=== PATIENT | male | born 1965 | race Two or more races ===

== ENCOUNTER 2023-09-19 05:16 | Inpatient (IN) | payer MEDICAID ==
[~2023-09-19] VITALS: Ht 170.2 cm; Wt 91.1 kg
[2023-09-19] MEDS ORDERED: pantoprazole 40mg IV 80 MG in normal saline 100ml IV soln 100 ML IV ONE (05:30)
[2023-09-19] MEDS ORDERED: normal saline 1000ML IV soln IVB ONE (05:30)
[2023-09-19] MEDS ORDERED: pantoprazole 40 MG vial IV ONE (05:35)
[2023-09-19] MEDS ORDERED: normal saline 1000ML IV soln IV ONE (06:00)
[2023-09-19] MEDS ORDERED: ondansetron/PF 4mg/2ml inj IV ONE ×2 (06:15→21:10)
[2023-09-19 06:24] LABS: BASOPHILS % (AUTO) 0.4 % (0-1); EOSINOPHILS # (AUTO) 0.3 X10'3 (0-0.9); EOSINOPHILS % (AUTO) 3.5 % (0-6); HEMATOCRIT 37.5 % (42.0-52.0); HEMOGLOBIN 13.2 g/dl (14.0-17.9); LYMPHOCYTES # (AUTO) 1.2 X10'3 (1.1-4.8); LYMPHOCYTES % (AUTO) 13.6 % (21-51); MEAN CORPUSCULAR HEMOGLOBIN 34.2 PG (27.0-31.0); MEAN CORPUSCULAR HGB CONC 35.1 g/dL (33.0-36.5); MEAN CORPUSCULAR VOLUME 97.3 FL (78-98); MEAN PLATELET VOLUME 9.8 FL (7.4-10.4); MONOCYTES % (AUTO) 11.3 % (2-12); NEUTROPHILS # (AUTO) 6.2 X10'3 (1.8-7.7); NEUTROPHILS % (AUTO) 71.2 % (42-75); PLATELET COUNT 73 X10'3 (140-440); RED BLOOD COUNT 3.85 X10'6 (4.70-6.10); RED CELL DISTRIBUTION WIDTH 14.5 % (11.5-14.5); WHITE BLOOD COUNT 8.7 X10'3 (4.5-11.0)
[2023-09-19 06:33] LABS: APTT 33 SECONDS (22-32); INR 1.3 INR; PROTHROMBIN TIME 13.7 SECONDS (9.0-12.0)
[2023-09-19 06:35] LABS: ALANINE AMINOTRANSFERASE 31 U/L (12-78); ALBUMIN/GLOBULIN RATIO 0.8 (1.1-1.5); ALKALINE PHOSPHATASE 90 IU/L (46-116); ANION GAP 14 (8-16); ASPARTATE AMINO TRANSFERASE 45 U/L (10-37); BILIRUBIN,TOTAL 1.9 MG/DL (0.1-1.0); BLOOD UREA NITROGEN 35 MG/DL (7-18); BUN/CREATININE RATIO 15.6 (10.0-20.0); CALCIUM 9.2 MG/DL (8.5-10.1); CHLORIDE 104 MMOL/L (99-107); CREATININE 2.25 MG/DL (0.60-1.10); GLUCOSE 136 MG/DL (70-104); POTASSIUM 3.7 MMOL/L (3.5-5.1); SODIUM 141 MMOL/L (135-145); TOTAL CARBON DIOXIDE 23.5 MMOL/L (24-32); TOTAL PROTEIN 6.9 G/DL (6.4-8.2); eCRCL 33 ML/MIN; eGFR 30 ML/MIN
[2023-09-19] MEDS ORDERED: METF-436 PO (07:55)
[2023-09-19] MEDS ORDERED: HYDR-3965 PO (08:21)
[2023-09-19] MEDS ORDERED: POTASSIUM (08:21)
[2023-09-19] MEDS ORDERED: CYCL1DRO (08:21)
[2023-09-19] MEDS ORDERED: FURO20TA4 PO (08:21)
[2023-09-19] MEDS ORDERED: ERGO500093 PO (08:21)
[2023-09-19] MEDS ORDERED: EPLE50TA3 PO (08:21)
[2023-09-19] MEDS ORDERED: TIZA-205 PO (08:21)
[2023-09-19] MEDS ORDERED: LEVO40CA PO (08:21)
[2023-09-19] MEDS ORDERED: BICT1TAB PO (08:21)
[2023-09-19] MEDS ORDERED: PREG150C47 PO (08:21)
[2023-09-19] MEDS ORDERED: octreotide inj. 1,250 MCG in normal saline 250ml IV soln 243.75 ML IV SCH (08:55)
[2023-09-19] MEDS ORDERED: octreotide 100mcg/1 ml ampule IV ONE (09:00)
[2023-09-19 09:09] LABS: BILIRUBIN,URINE NEGATIVE (Neg); CLARITY,URINE CLEAR (Clear); COLOR,URINE YELLOW (Yellow); GLUCOSE, URINE NEGATIVE (Neg); KETONES,URINE NEGATIVE (Neg); LEUKOCYTE ESTERASE ,URINE NEGATIVE (Neg); NITRITES, URINE NEGATIVE (Neg); OCCULT BLOOD,URINE NEGATIVE (Neg); PROTEIN,URINE TRACE mg/dl (Neg); UROBILINOGEN,URINE 0.2 E.U/dL (0.2-1.0)
[2023-09-19 09:29] LABS: UA COLLECTION TYPE CLN CATCH MIDSTREAM
[2023-09-19 09:32] LABS: BACTERIA,URINE FEW /HPF (Neg); CAL OXALATE CRYSTALS 4+ /HPF (NEGATIVE); RBC,URINE 0-2 /HPF (0-2); SQUAMOUS EPITHELIAL CELL,UR FEW /LPF (FEW); WBC,URINE 0-4 /HPF (0-4)
[2023-09-19] MEDS: pantoprazole 40MG/NS 100ML BAG 100 ML IV SCH ×3 (09:39→21:01)
[2023-09-19] MEDS: octreotide inj. 500 MCG in normal saline 100ml IV soln 97.5 ML IV SCH (10:05)
[2023-09-19] MEDS ORDERED: acetaminophen 325mg tablet PO PRN (10:15)
[2023-09-19] MEDS ORDERED: magnesium 4gm in 100ml NS 100 ML IV PRN (10:15)
[2023-09-19] MEDS ORDERED: magnesium Cl slow-release 64mg tablet PO PRN (10:15)
[2023-09-19] MEDS ORDERED: magnesium 2GM in 50ml NS 50 ML IV PRN (10:15)
[2023-09-19] MEDS ORDERED: potassium Cl 20 mEq SR tablet PO PRN (10:15)
[2023-09-19] MEDS ORDERED: potassium Cl 40MEQ/1/2NS 520ml 520 ML IV PRN (10:15)
[2023-09-19 10:48] VITALS: BP 136/76; PULSE 91; RESP 18
[2023-09-19] MEDS ORDERED: ondansetron/PF 4mg/2ml inj ONE (10:51)
[2023-09-19] MEDS: ondansetron/PF 4mg/2ml inj IV PRN ×2 (10:55→18:13)
[2023-09-19] MEDS ORDERED: CefTRIAXone/D5W-Rocephin 1gm 50 ML IV ONE (11:10)
[2023-09-19] MEDS ORDERED: MIDAZolam 1 MG/ML 5ML VIAL ONE (11:23)
[2023-09-19] MEDS ORDERED: LIDOcaine Viscous 15ml cup ONE (11:23)
[2023-09-19] MEDS ORDERED: fentaNYL/PF 50MCG/1 ML 2ML syringe ONE (11:23)
[2023-09-19 11:48] VITALS: BP 96/52; PULSE 84; RESP 15; O2SAT 96
[2023-09-19 11:58] VITALS: BP 86/53; PULSE 78; RESP 16; O2SAT 97
[2023-09-19 12:08] VITALS: BP 86/50; PULSE 78; RESP 16; O2SAT 97
[2023-09-19 12:18] VITALS: BP 98/54; PULSE 77; RESP 16; O2SAT 97
[2023-09-19] MEDS: morphine 2 MG/ML inj. syringe IV PRN (19:27)
[2023-09-19] MEDS ORDERED: ondansetron/PF 4mg/2ml inj IM ONE (20:35)
[2023-09-19] MEDS: K and/or MAG REPLACEMENT MC SCH (20:57)
[2023-09-20] MEDS: octreotide inj. 500 MCG in normal saline 100ml IV soln 97.5 ML IV SCH ×4 (01:10→23:18)
[2023-09-20] MEDS: pantoprazole 40MG/NS 100ML BAG 100 ML IV SCH ×6 (02:38→23:17)
[2023-09-20] MEDS: K and/or MAG REPLACEMENT MC SCH ×2 (08:00→20:00)
[2023-09-20 10:18] LABS: BASOPHILS # (AUTO) 0.1 X10'3 (0-0.2); EOSINOPHILS # (AUTO) 0.3 X10'3 (0-0.9); EOSINOPHILS % (AUTO) 5.3 % (0-6); HEMATOCRIT 30.8 % (42.0-52.0); HEMOGLOBIN 10.6 g/dl (14.0-17.9); LYMPHOCYTES # (AUTO) 1.2 X10'3 (1.1-4.8); MEAN CORPUSCULAR HEMOGLOBIN 34.2 PG (27.0-31.0); MEAN CORPUSCULAR HGB CONC 34.6 g/dL (33.0-36.5); MEAN PLATELET VOLUME 9.8 FL (7.4-10.4); MONOCYTES # (AUTO) 0.6 X10'3 (0-0.9); MONOCYTES % (AUTO) 11.3 % (2-12); NEUTROPHILS # (AUTO) 3.4 X10'3 (1.8-7.7); NEUTROPHILS % (AUTO) 61.4 % (42-75); PLATELET COUNT 57 X10'3 (140-440); RED BLOOD COUNT 3.11 X10'6 (4.70-6.10); RED CELL DISTRIBUTION WIDTH 14.5 % (11.5-14.5); WHITE BLOOD COUNT 5.6 X10'3 (4.5-11.0)
[2023-09-20 10:29] LABS: ALBUMIN 2.8 G/DL (3.4-5.0); ANION GAP 9 (8-16); BLOOD UREA NITROGEN 49 MG/DL (7-18); BUN/CREATININE RATIO 26.9 (10.0-20.0); CALCIUM 7.7 MG/DL (8.5-10.1); CHLORIDE 113 MMOL/L (99-107); CREATININE 1.82 MG/DL (0.60-1.10); GLUCOSE 122 MG/DL (70-104); POTASSIUM 3.6 MMOL/L (3.5-5.1); SODIUM 146 MMOL/L (135-145); TOTAL CARBON DIOXIDE 24.1 MMOL/L (24-32); eCRCL 41 ML/MIN; eGFR 38 ML/MIN
[2023-09-20] MEDS: ondansetron/PF 4mg/2ml inj IV PRN ×2 (10:42→19:03)
[2023-09-20] MEDS: morphine 2 MG/ML inj. syringe IV PRN ×4 (10:43→23:18)
[2023-09-20 11:12] LABS: PLATELET ESTIMATE DECREASED
[2023-09-20 11:13] LABS: ELLIPTOCYTES FEW; POLYCHROMASIA FEW
[2023-09-20] MEDS ORDERED: tizanidine 4mg tablet PO PRN (13:55)
[2023-09-20] MEDS: pregabalin 75mg capsule PO SCH ×2 (17:32→21:10)
[2023-09-20] MEDS: CefTRIAXone/D5W-Rocephin 1gm 50 ML IV SCH (19:16)
[2023-09-20] MEDS ORDERED: DEXTROSE 15 GM of carb/4 tabs (each vial/BOTTLE has 4 tablets) PO PRN ×2 (21:10)
[2023-09-20] MEDS ORDERED: dextrose 50%-water 50ml dispensing syringe IV PRN ×2 (21:10)
[2023-09-20] MEDS ORDERED: insulin Lispro (HumaLOG) vial - multi-dose SQ SCH (21:10)
[2023-09-20] MEDS ORDERED: MESSAGE TO PHARMACY PO ONE (21:10)
[2023-09-20] MEDS: furosemide 40mg tablet PO SCH (21:10)
[2023-09-20] MEDS ORDERED: glucagon, human recombinant 1mg kit SUBCUT PRN (21:10)
[2023-09-20 21:39] LABS: HEMOGLOBIN A1C 5.4 % (4.5-6.2)
[2023-09-20 22:13] VITALS: BP 135/72; PULSE 75; RESP 20; TEMP 98.3; O2SAT 99
[2023-09-21] MEDS: pantoprazole 40MG/NS 100ML BAG 100 ML IV SCH ×5 (03:38→21:59)
[2023-09-21 06:00] VITALS: BP 112/60; PULSE 83; RESP 20; TEMP 98; O2SAT 97
[2023-09-21 06:43] LABS: BASOPHILS % (AUTO) 0.5 % (0-1); EOSINOPHILS # (AUTO) 0.3 X10'3 (0-0.9); EOSINOPHILS % (AUTO) 5.4 % (0-6); HEMATOCRIT 31.1 % (42.0-52.0); HEMOGLOBIN 10.8 g/dl (14.0-17.9); LYMPHOCYTES # (AUTO) 1.3 X10'3 (1.1-4.8); LYMPHOCYTES % (AUTO) 23.1 % (21-51); MEAN CORPUSCULAR HEMOGLOBIN 34.9 PG (27.0-31.0); MEAN CORPUSCULAR HGB CONC 34.8 g/dL (33.0-36.5); MEAN CORPUSCULAR VOLUME 100.3 FL (78-98); MEAN PLATELET VOLUME 9.6 FL (7.4-10.4); MONOCYTES # (AUTO) 0.7 X10'3 (0-0.9); MONOCYTES % (AUTO) 12.1 % (2-12); NEUTROPHILS # (AUTO) 3.4 X10'3 (1.8-7.7); NEUTROPHILS % (AUTO) 58.9 % (42-75); PLATELET COUNT 62 X10'3 (140-440); WHITE BLOOD COUNT 5.7 X10'3 (4.5-11.0)
[2023-09-21 06:52] LABS: ANION GAP 9 (8-16); BLOOD UREA NITROGEN 44 MG/DL (7-18); BUN/CREATININE RATIO 22.8 (10.0-20.0); CALCIUM 8.8 MG/DL (8.5-10.1); CHLORIDE 115 MMOL/L (99-107); CREATININE 1.93 MG/DL (0.60-1.10); GLUCOSE 122 MG/DL (70-104); MAGNESIUM 2.1 MG/DL (1.5-2.4); SODIUM 147 MMOL/L (135-145); TOTAL CARBON DIOXIDE 23.1 MMOL/L (24-32); eCRCL 39 ML/MIN; eGFR 36 ML/MIN
[2023-09-21 06:54] LABS: POTASSIUM 3.4 MMOL/L (3.5-5.1)
[2023-09-21] MEDS: K and/or MAG REPLACEMENT MC SCH ×2 (08:00→20:00)
[2023-09-21] MEDS: LEVOMILNACIPRAN HYDROCHLORIDE 40 MG PO SCH (08:00)
[2023-09-21] MEDS: pregabalin 75mg capsule PO SCH ×4 (08:27→20:34)
[2023-09-21] MEDS: CefTRIAXone/D5W-Rocephin 1gm 50 ML IV SCH (08:27)
[2023-09-21] MEDS: furosemide 40mg tablet PO SCH ×2 (08:28→20:35)
[2023-09-21] MEDS: HYDROcodone/acetaminophen 5mg/325mg tablet PO PRN ×3 (08:29→21:54)
[2023-09-21] MEDS: potassium Cl 20 mEq SR tablet PO PRN ×2 (08:33→21:54)
[2023-09-21] MEDS: morphine 2 MG/ML inj. syringe IV PRN (10:23)
[2023-09-21] MEDS: octreotide inj. 500 MCG in normal saline 100ml IV soln 97.5 ML IV SCH ×2 (12:08→22:45)
[2023-09-21 18:00] VITALS: BP 117/58; PULSE 85; RESP 16; TEMP 99.3; O2SAT 97
[2023-09-21 20:00] VITALS: RESP 18; O2SAT 96
[2023-09-21] MEDS: carVEDilol 3.125mg tablet PO SCH (20:35)
[2023-09-21] MEDS ORDERED: insulin glargine (Lantus) pen - multi-dose SQ SCH (21:00)
[2023-09-21 22:00] VITALS: PULSE 78; RESP 16; TEMP 98.1; O2SAT 97
[2023-09-22] MEDS: pantoprazole 40MG/NS 100ML BAG 100 ML IV SCH ×2 (04:32→10:04)
[2023-09-22 05:46] LABS: BASOPHILS % (AUTO) 0.8 % (0-1); EOSINOPHILS # (AUTO) 0.3 X10'3 (0-0.9); EOSINOPHILS % (AUTO) 9.2 % (0-6); HEMATOCRIT 26.7 % (42.0-52.0); HEMOGLOBIN 9.2 g/dl (14.0-17.9); LYMPHOCYTES # (AUTO) 1.1 X10'3 (1.1-4.8); LYMPHOCYTES % (AUTO) 30.3 % (21-51); MEAN CORPUSCULAR HEMOGLOBIN 34.9 PG (27.0-31.0); MEAN CORPUSCULAR HGB CONC 34.6 g/dL (33.0-36.5); MEAN CORPUSCULAR VOLUME 101.1 FL (78-98); MEAN PLATELET VOLUME 9.8 FL (7.4-10.4); MONOCYTES # (AUTO) 0.5 X10'3 (0-0.9); MONOCYTES % (AUTO) 13.7 % (2-12); NEUTROPHILS # (AUTO) 1.7 X10'3 (1.8-7.7); PLATELET COUNT 55 X10'3 (140-440); RED BLOOD COUNT 2.64 X10'6 (4.70-6.10); RED CELL DISTRIBUTION WIDTH 15.1 % (11.5-14.5); WHITE BLOOD COUNT 3.6 X10'3 (4.5-11.0)
[2023-09-22] MEDS: octreotide inj. 500 MCG in normal saline 100ml IV soln 97.5 ML IV SCH (05:50)
[2023-09-22 05:52] LABS: ALBUMIN 2.5 G/DL (3.4-5.0); ANION GAP 11 (8-16); BLOOD UREA NITROGEN 32 MG/DL (7-18); BUN/CREATININE RATIO 14.5 (10.0-20.0); CALCIUM 7.9 MG/DL (8.5-10.1); CHLORIDE 110 MMOL/L (99-107); GLUCOSE 191 MG/DL (70-104); MAGNESIUM 1.8 MG/DL (1.5-2.4); POTASSIUM 3.2 MMOL/L (3.5-5.1); SODIUM 142 MMOL/L (135-145); TOTAL CARBON DIOXIDE 21.1 MMOL/L (24-32); eCRCL 34 ML/MIN; eGFR 31 ML/MIN
[2023-09-22 06:00] VITALS: BP 100/55; PULSE 57; RESP 18; TEMP 97.7; O2SAT 95
[2023-09-22] MEDS: furosemide 40mg tablet PO SCH (07:18)
[2023-09-22] MEDS: carVEDilol 3.125mg tablet PO SCH (07:18)
[2023-09-22] MEDS: pregabalin 75mg capsule PO SCH ×3 (07:18→16:27)
[2023-09-22] MEDS ORDERED: magnesium 2GM in 50ml NS 50 ML IV PRN (07:40)
[2023-09-22] MEDS ORDERED: magnesium 4gm in 100ml NS 100 ML IV PRN (07:40)
[2023-09-22 08:00] VITALS: RESP 18; O2SAT 95
[2023-09-22] MEDS: K and/or MAG REPLACEMENT MC SCH (08:00)
[2023-09-22] MEDS: LEVOMILNACIPRAN HYDROCHLORIDE 40 MG PO SCH (08:00)
[2023-09-22] MEDS: CefTRIAXone/D5W-Rocephin 1gm 50 ML IV SCH (09:58)
[2023-09-22 10:00] VITALS: BP 104/65; PULSE 66; RESP 18; TEMP 98; O2SAT 95
[2023-09-22 14:28] LABS: HEMOGLOBIN 9.5 g/dl (14.0-17.9); MEAN CORPUSCULAR HEMOGLOBIN 34.5 PG (27.0-31.0); MEAN CORPUSCULAR HGB CONC 34.1 g/dL (33.0-36.5); MEAN CORPUSCULAR VOLUME 101.4 FL (78-98); MEAN PLATELET VOLUME 9.6 FL (7.4-10.4); PLATELET COUNT 58 X10'3 (140-440); RED BLOOD COUNT 2.76 X10'6 (4.70-6.10); RED CELL DISTRIBUTION WIDTH 15.1 % (11.5-14.5); WHITE BLOOD COUNT 3.9 X10'3 (4.5-11.0)
[2023-09-22] MEDS ORDERED: potassium Cl 20 mEq SR tablet PO STA (15:35)
[2023-09-22] MEDS ORDERED: PANT40TA54 PO (15:46)
[2023-09-22] MEDS ORDERED: CARV3.122 PO (15:46)
[2023-09-22] MEDS ORDERED: LACT10SO78 PO (15:46)
== END 2023-09-22 17:10 | disposition home or self-care (01) ==
LOC: ER 05:17 → ED HOLD 10:19 → ORTHO 4S 09-20 22:10
PROVIDERS: ADMIT Internal Medicine; ATTEND Internal Medicine
PROC: 0DJ08ZZ Inspection of Upper Intestinal Tract, Via Natural or Artificial Opening Endoscopic (ICD-10-PCS; 2023-09-19)
PROC: 0W9G3ZZ Drainage of Peritoneal Cavity, Percutaneous Approach (ICD-10-PCS; principal; 2023-09-21)
DX: K76.6 Portal hypertension (principal); I81 Portal vein thrombosis; G93.40 Encephalopathy, unspecified; I85.01 Esophageal varices with bleeding; K72.10 Chronic hepatic failure without coma; E87.0 Hyperosmolality and hypernatremia; D69.6 Thrombocytopenia, unspecified; R18.8 Other ascites; R71.0 Precipitous drop in hematocrit; K31.89 Other diseases of stomach and duodenum; D12.6 Benign neoplasm of colon, unspecified; K76.82 Hepatic encephalopathy; N17.9 Acute kidney failure, unspecified; K73.9 Chronic hepatitis, unspecified; K74.60 Unspecified cirrhosis of liver; N18.9 Chronic kidney disease, unspecified; E80.6 Other disorders of bilirubin metabolism; Z79.84 Long term (current) use of oral hypoglycemic drugs; Z79.899 Other long term (current) drug therapy; Z90.49 Acquired absence of other specified parts of digestive tract; Z87.891 Personal history of nicotine dependence
CPT/HCPCS: 36415; 43235; 71045; 76705; 80048; 80053; 81001; 82140; 82948; 83036; 83735; 84132; 85008; 85025; 85027; 85610; 85730; 86885; 86900; 86901; 87040; 87081; 93005; 96361; 96374; 96375; 97116; 97161; 97530; 99152; 99285; A4620; C9113; G0378; J0696; J1815; J2250; J2270; J2354; J2405; J3010; J3490; J7030

== ENCOUNTER 2023-09-28 17:53 | Inpatient (IN) | payer MEDICAID ==
[~2023-09-28] VITALS: Ht 170.2 cm; Wt 89.0 kg
[~2023-09-28 17:53] MED LIST: BICT1TAB PO; CARV3.122 PO; CYCL1DRO; EPLE50TA3 PO; ERGO500093 PO; FURO20TA4 PO; HYDR-3965 PO; LACT10SO78 PO; LEVO40CA PO; PANT40TA54 PO; POTASSIUM; PREG150C47 PO; TIZA-205 PO
[2023-09-28 18:28] LABS: BASOPHILS % (AUTO) 0.6 % (0-1); EOSINOPHILS # (AUTO) 0.2 X10'3 (0-0.9); EOSINOPHILS % (AUTO) 5.3 % (0-6); HEMATOCRIT 29.3 % (42.0-52.0); HEMOGLOBIN 10.6 g/dl (14.0-17.9); LYMPHOCYTES % (AUTO) 23.2 % (21-51); MEAN CORPUSCULAR HEMOGLOBIN 35.5 PG (27.0-31.0); MEAN CORPUSCULAR HGB CONC 36.3 g/dL (33.0-36.5); MEAN CORPUSCULAR VOLUME 97.8 FL (78-98); MEAN PLATELET VOLUME 9.1 FL (7.4-10.4); MONOCYTES # (AUTO) 0.6 X10'3 (0-0.9); MONOCYTES % (AUTO) 13.3 % (2-12); NEUTROPHILS # (AUTO) 2.5 X10'3 (1.8-7.7); NEUTROPHILS % (AUTO) 57.6 % (42-75); PLATELET COUNT 78 X10'3 (140-440); RED BLOOD COUNT 2.99 X10'6 (4.70-6.10); RED CELL DISTRIBUTION WIDTH 15.4 % (11.5-14.5); WHITE BLOOD COUNT 4.3 X10'3 (4.5-11.0)
[2023-09-28 18:56] LABS: ALBUMIN 2.9 G/DL (3.4-5.0); ALBUMIN/GLOBULIN RATIO 0.7 (1.1-1.5); ALKALINE PHOSPHATASE 126 IU/L (46-116); BILIRUBIN,TOTAL 0.9 MG/DL (0.1-1.0); BLOOD UREA NITROGEN 24 MG/DL (7-18); BUN/CREATININE RATIO 11.4 (10.0-20.0); CALCIUM 8.8 MG/DL (8.5-10.1); CHLORIDE 103 MMOL/L (99-107); PRO BRAIN NATRIURETIC PEPTIDE 49 PG/ML (0-125); TOTAL CARBON DIOXIDE 24.6 MMOL/L (24-32); TOTAL PROTEIN 7.3 G/DL (6.4-8.2); eGFR 32 ML/MIN
[2023-09-28 19:23] LABS: ALANINE AMINOTRANSFERASE 24 U/L (12-78); ANION GAP 11 (8-16); ASPARTATE AMINO TRANSFERASE 28 U/L (10-37); GLUCOSE 119 MG/DL (70-104); POTASSIUM 3.1 MMOL/L (3.5-5.1); SODIUM 139 MMOL/L (135-145)
[2023-09-28 20:22] LABS: PLATELET ESTIMATE DECREASED; POLYCHROMASIA FEW; SPHEROCYTES FEW
[2023-09-28 20:23] LABS: ELLIPTOCYTES FEW
[2023-09-28 20:27] LABS: APTT 30 SECONDS (22-32); INR 1.1 INR; PROTHROMBIN TIME 11.6 SECONDS (9.0-12.0)
[2023-09-28] MEDS ORDERED: lactulose 20gm/30ml cup PO ONE (21:55)
[2023-09-28 21:57] LABS: BILIRUBIN,URINE NEGATIVE (Neg); CLARITY,URINE CLEAR (Clear); COLOR,URINE YELLOW (Yellow); GLUCOSE, URINE NEGATIVE (Neg); KETONES,URINE NEGATIVE (Neg); LEUKOCYTE ESTERASE ,URINE NEGATIVE (Neg); NITRITES, URINE NEGATIVE (Neg); OCCULT BLOOD,URINE NEGATIVE (Neg); PH,URINE 6.5 (4.8-8.0); PROTEIN,URINE NEGATIVE (Neg)
[2023-09-28 22:02] LABS: UA COLLECTION TYPE URINAL
[2023-09-28] MEDS ORDERED: ondansetron/PF 4mg/2ml inj IV PRN (23:20)
[2023-09-28] MEDS ORDERED: potassium Cl 20 mEq SR tablet PO PRN (23:20)
[2023-09-28] MEDS ORDERED: magnesium Cl slow-release 64mg tablet PO PRN (23:20)
[2023-09-28] MEDS ORDERED: magnesium 4gm in 100ml NS 100 ML IV PRN (23:20)
[2023-09-28] MEDS ORDERED: potassium Cl 40MEQ/1/2NS 520ml 520 ML IV PRN (23:20)
[2023-09-28] MEDS ORDERED: acetaminophen 325mg tablet PO PRN ×2 (23:20)
[2023-09-28] MEDS ORDERED: magnesium 2GM in 50ml NS 50 ML IV PRN (23:20)
[2023-09-29] MEDS: potassium Cl 20 mEq SR tablet PO PRN ×2 (02:43→08:15)
[2023-09-29] MEDS ORDERED: lactulose 20gm/30ml cup PO SCH (08:00)
[2023-09-29] MEDS ORDERED: pantoprazole 40 MG vial IV SCH (08:00)
[2023-09-29 08:56] LABS: BASOPHILS % (AUTO) 0.7 % (0-1); EOSINOPHILS # (AUTO) 0.2 X10'3 (0-0.9); EOSINOPHILS % (AUTO) 7.1 % (0-6); HEMATOCRIT 31.7 % (42.0-52.0); MEAN CORPUSCULAR HEMOGLOBIN 34.1 PG (27.0-31.0); MEAN CORPUSCULAR HGB CONC 34.7 g/dL (33.0-36.5); MEAN CORPUSCULAR VOLUME 98.3 FL (78-98); MONOCYTES # (AUTO) 0.5 X10'3 (0-0.9); MONOCYTES % (AUTO) 15.7 % (2-12); NEUTROPHILS # (AUTO) 1.7 X10'3 (1.8-7.7); NEUTROPHILS % (AUTO) 48.5 % (42-75); PLATELET COUNT 75 X10'3 (140-440); RED BLOOD COUNT 3.23 X10'6 (4.70-6.10); RED CELL DISTRIBUTION WIDTH 15.4 % (11.5-14.5); WHITE BLOOD COUNT 3.4 X10'3 (4.5-11.0)
[2023-09-29 09:26] LABS: ANION GAP 7 (8-16); CHLORIDE 105 MMOL/L (99-107); GLUCOSE 114 MG/DL (70-104); POTASSIUM 3.5 MMOL/L (3.5-5.1); SODIUM 142 MMOL/L (135-145); TOTAL CARBON DIOXIDE 29.7 MMOL/L (24-32)
[2023-09-29 09:27] LABS: ALANINE AMINOTRANSFERASE 22 U/L (12-78); ALBUMIN/GLOBULIN RATIO 0.7 (1.1-1.5); ALKALINE PHOSPHATASE 92 IU/L (46-116); ASPARTATE AMINO TRANSFERASE 25 U/L (10-37); BILIRUBIN,TOTAL 1.3 MG/DL (0.1-1.0); BLOOD UREA NITROGEN 21 MG/DL (7-18); BUN/CREATININE RATIO 10.3 (10.0-20.0); CALCIUM 8.9 MG/DL (8.5-10.1); CREATININE 2.04 MG/DL (0.60-1.10); TOTAL PROTEIN 7.3 G/DL (6.4-8.2); eCRCL 36 ML/MIN; eGFR 34 ML/MIN
[2023-09-29 14:02] VITALS: BP 119/74; PULSE 72; RESP 16; TEMP 98.3; O2SAT 95
[2023-09-29] MEDS ORDERED: enoxaparin 40mg/0.4ml syringe SQ SCH (20:00)
== END 2023-09-29 14:02 | disposition home or self-care (01) ==
LOC: ER 17:53 → OBSVTOIN 23:21 → ED HOLD 23:21
PROVIDERS: ADMIT Internal Medicine; ATTEND Family Medicine
DX: K76.82 Hepatic encephalopathy (principal); G93.41 Metabolic encephalopathy; K72.10 Chronic hepatic failure without coma; M31.0 Hypersensitivity angiitis; Z66 Do not resuscitate; E87.6 Hypokalemia; N18.9 Chronic kidney disease, unspecified; E11.22 Type 2 diabetes mellitus with diabetic chronic kidney disease; B18.1 Chronic viral hepatitis B without delta-agent; I10 Essential (primary) hypertension; F17.210 Nicotine dependence, cigarettes, uncomplicated; K21.9 Gastro-esophageal reflux disease without esophagitis; K76.6 Portal hypertension; I25.10 Atherosclerotic heart disease of native coronary artery without angina pectoris; K74.60 Unspecified cirrhosis of liver; Z79.899 Other long term (current) drug therapy; Z90.49 Acquired absence of other specified parts of digestive tract; Z80.0 Family history of malignant neoplasm of digestive organs; Z80.8 Family history of malignant neoplasm of other organs or systems
CPT/HCPCS: 36415; 71045; 80053; 81003; 82140; 82948; 83605; 83880; 84145; 84484; 85008; 85025; 85610; 85651; 85730; 86140; 93005; 99285; C9113; G0378

== ENCOUNTER 2024-01-19 21:26 | Emergency (ER) | payer MEDICAID ==
[~2024-01-19] VITALS: Ht 170.2 cm; Wt 93.0 kg
[~2024-01-19 21:26] MED LIST changes: -POTASSIUM
[2024-01-19 22:10] LABS: EOSINOPHILS # (AUTO) 0.2 X10'3 (0-0.9); EOSINOPHILS % (AUTO) 5.3 % (0-6); LYMPHOCYTES # (AUTO) 0.7 X10'3 (1.1-4.8); MEAN CORPUSCULAR HEMOGLOBIN 28.8 PG (27.0-31.0); MEAN PLATELET VOLUME 8.7 FL (7.4-10.4); MONOCYTES # (AUTO) 0.4 X10'3 (0-0.9); NEUTROPHILS # (AUTO) 2.2 X10'3 (1.8-7.7); PLATELET COUNT 64 X10'3 (140-440); WHITE BLOOD COUNT 3.5 X10'3 (4.5-11.0)
[2024-01-19 22:12] LABS: BASOPHILS % (AUTO) 0.3 % (0-1); HEMOGLOBIN 10.8 g/dl (14.0-17.9); LYMPHOCYTES % (AUTO) 19.6 % (21-51); MEAN CORPUSCULAR HGB CONC 33.6 g/dL (33.0-36.5); MEAN CORPUSCULAR VOLUME 85.7 FL (78-98); MONOCYTES % (AUTO) 11.4 % (2-12); NEUTROPHILS % (AUTO) 63.4 % (42-75); RED BLOOD COUNT 3.74 X10'6 (4.70-6.10); RED CELL DISTRIBUTION WIDTH 15.9 % (11.5-14.5)
[2024-01-19 22:17] LABS: ALANINE AMINOTRANSFERASE 18 U/L (12-78); ALBUMIN 3.4 G/DL (3.4-5.0); ALBUMIN/GLOBULIN RATIO 0.8 (1.1-1.5); ALKALINE PHOSPHATASE 169 IU/L (46-116); ANION GAP 10 (8-16); ASPARTATE AMINO TRANSFERASE 25 U/L (10-37); BLOOD UREA NITROGEN 13 MG/DL (7-18); BUN/CREATININE RATIO 7.7 (10.0-20.0); CALCIUM 9.6 MG/DL (8.5-10.1); CHLORIDE 105 MMOL/L (99-107); CREATININE 1.69 MG/DL (0.60-1.10); LIPASE 56 U/L (16-77); POTASSIUM 3.1 MMOL/L (3.5-5.1); SODIUM 141 MMOL/L (135-145); TOTAL CARBON DIOXIDE 26.5 MMOL/L (24-32); TOTAL PROTEIN 7.8 G/DL (6.4-8.2); eCRCL 43 ML/MIN; eGFR 42 ML/MIN
[2024-01-19] MEDS ORDERED: METF-1203 PO (22:18)
[2024-01-19 22:19] LABS: GLUCOSE 168 MG/DL (70-104)
[2024-01-19] MEDS ORDERED: POTA-188 PO (22:19)
[2024-01-19] MEDS ORDERED: ARIP10TA14 PO (22:21)
[2024-01-19] MEDS ORDERED: RIFA550T PO (22:22)
[2024-01-19 23:02] LABS: PLATELET ESTIMATE DECREASED; TOTAL CELLS COUNTED 100
[2024-01-19 23:07] LABS: ELLIPTOCYTES FEW; POIKILOCYTOSIS 1+; SCHISTOCYTES FEW; SMUDGE CELLS FEW
[2024-01-20] MEDS: morphine 4 MG/ML inj SYRINge IV PRN (01:12)
[2024-01-20] MEDS: ondansetron/PF 4mg/2ml inj IV ONE (01:12)
[2024-01-20] MEDS: normal saline 1000ML IV soln IVB ONE (01:12)
[2024-01-20 01:25] LABS: BILIRUBIN,URINE NEGATIVE (Neg); CLARITY,URINE SLIGHTLY CLOUDY (Clear); COLOR,URINE YELLOW (Yellow); GLUCOSE, URINE NEGATIVE (Neg); KETONES,URINE NEGATIVE (Neg); LEUKOCYTE ESTERASE ,URINE NEGATIVE (Neg); NITRITES, URINE NEGATIVE (Neg); OCCULT BLOOD,URINE TRACE-INTACT (Neg); PROTEIN,URINE NEGATIVE (Neg)
[2024-01-20 01:30] LABS: UA COLLECTION TYPE CLN CATCH MIDSTREAM
[2024-01-20 01:31] LABS: SQUAMOUS EPITHELIAL CELL,UR FEW /LPF (FEW)
[2024-01-20 01:32] LABS: BACTERIA,URINE FEW /HPF (Neg); RBC,URINE 0-2 /HPF (0-2); WBC,URINE 0-4 /HPF (0-4)
[2024-01-20 01:33] LABS: AMORPHOUS PHOSPHATES 2+
[2024-01-20 01:58] LABS: BASOPHILS % (AUTO) 1.2 % (0-1); EOSINOPHILS # (AUTO) 0.2 X10'3 (0-0.9); EOSINOPHILS % (AUTO) 5.4 % (0-6); HEMATOCRIT 31.5 % (42.0-52.0); HEMOGLOBIN 10.6 g/dl (14.0-17.9); LYMPHOCYTES # (AUTO) 0.7 X10'3 (1.1-4.8); LYMPHOCYTES % (AUTO) 18.5 % (21-51); MEAN CORPUSCULAR HEMOGLOBIN 28.8 PG (27.0-31.0); MEAN CORPUSCULAR HGB CONC 33.5 g/dL (33.0-36.5); MEAN CORPUSCULAR VOLUME 85.8 FL (78-98); MEAN PLATELET VOLUME 8.8 FL (7.4-10.4); MONOCYTES # (AUTO) 0.5 X10'3 (0-0.9); NEUTROPHILS # (AUTO) 2.3 X10'3 (1.8-7.7); NEUTROPHILS % (AUTO) 60.9 % (42-75); PLATELET COUNT 52 X10'3 (140-440); RED BLOOD COUNT 3.67 X10'6 (4.70-6.10); RED CELL DISTRIBUTION WIDTH 16.7 % (11.5-14.5); WHITE BLOOD COUNT 3.8 X10'3 (4.5-11.0)
[2024-01-20] MEDS ORDERED: LEVO-65 PO (04:36)
[2024-01-20] MEDS ORDERED: METR-159 PO (04:36)
[2024-01-20] MEDS ORDERED: HYDR-3965 PO (04:37)
[2024-01-20 04:50] VITALS: BP 134/75; PULSE 84; RESP 18; TEMP 98.9; O2SAT 94
== END 2024-01-20 04:55 | disposition home or self-care (01) ==
LOC: ER 21:27
DX: K57.92 Diverticulitis of intestine, part unspecified, without perforation or abscess without bleeding (principal); K72.10 Chronic hepatic failure without coma; E87.6 Hypokalemia; K21.9 Gastro-esophageal reflux disease without esophagitis; I12.9 Hypertensive chronic kidney disease with stage 1 through stage 4 chronic kidney disease, or unspecified chronic kidney disease; E11.22 Type 2 diabetes mellitus with diabetic chronic kidney disease; N18.9 Chronic kidney disease, unspecified; I25.10 Atherosclerotic heart disease of native coronary artery without angina pectoris; F17.200 Nicotine dependence, unspecified, uncomplicated; Z88.8 Allergy status to other drugs, medicaments and biological substances; Z79.899 Other long term (current) drug therapy; Z79.2 Long term (current) use of antibiotics
CPT/HCPCS: 36415; 74176; 80053; 81001; 83690; 84484; 85007; 85025; 96374; 96375; 96376; 99285; J2270; J2405; J7030

== ENCOUNTER 2024-04-02 17:34 | Emergency (ER) | payer MEDICAID ==
[~2024-04-02] VITALS: Ht 170.2 cm; Wt 89.7 kg
[~2024-04-02 17:34] MED LIST changes: +ARIP10TA14 PO; -CARV3.122 PO; +EPLE50TA16 PO; -EPLE50TA3 PO; -LACT10SO78 PO; +METF-1203 PO; +METR-159 PO; +POTA-188 PO; +RIFA550T PO
[2024-04-02 17:47] VITALS: TEMP 97.5
[2024-04-02] MEDS ORDERED: NPH, human insulin isophane inj. SQ STA (19:03)
[2024-04-02 19:34] LABS: EOSINOPHILS # (AUTO) 0.2 X10'3 (0-0.9); LYMPHOCYTES # (AUTO) 0.8 X10'3 (1.1-4.8); MONOCYTES # (AUTO) 0.6 X10'3 (0-0.9); NEUTROPHILS # (AUTO) 2.7 X10'3 (1.8-7.7); WHITE BLOOD COUNT 4.4 X10'3 (4.5-11.0)
[2024-04-02 19:36] LABS: BASOPHILS % (AUTO) 1.1 % (0-1); EOSINOPHILS % (AUTO) 4.8 % (0-6); HEMATOCRIT 34.1 % (42.0-52.0); HEMOGLOBIN 11.5 g/dl (14.0-17.9); LYMPHOCYTES % (AUTO) 18.8 % (21-51); MEAN CORPUSCULAR HEMOGLOBIN 28.9 PG (27.0-31.0); MEAN CORPUSCULAR HGB CONC 33.7 g/dL (33.0-36.5); MEAN CORPUSCULAR VOLUME 85.9 FL (78-98); MEAN PLATELET VOLUME 9.8 FL (7.4-10.4); MONOCYTES % (AUTO) 14.2 % (2-12); NEUTROPHILS % (AUTO) 61.1 % (42-75); PLATELET COUNT 60 X10'3 (140-440); RED BLOOD COUNT 3.97 X10'6 (4.70-6.10); RED CELL DISTRIBUTION WIDTH 17.7 % (11.5-14.5)
[2024-04-02 19:46] LABS: ACETONE NEGATIVE (NEGATIVE)
[2024-04-02 19:52] LABS: ALANINE AMINOTRANSFERASE 25 U/L (12-78); ALBUMIN 3.2 G/DL (3.4-5.0); ALBUMIN/GLOBULIN RATIO 0.7 (1.1-1.5); ALKALINE PHOSPHATASE 185 IU/L (46-116); ANION GAP 10 (8-16); ASPARTATE AMINO TRANSFERASE 33 U/L (10-37); BILIRUBIN,TOTAL 1.5 MG/DL (0.1-1.0); BLOOD UREA NITROGEN 18 MG/DL (7-18); BUN/CREATININE RATIO 8.3 (10.0-20.0); CALCIUM 8.5 MG/DL (8.5-10.1); CHLORIDE 95 MMOL/L (99-107); CREATININE 2.16 MG/DL (0.60-1.10); SODIUM 132 MMOL/L (135-145); TOTAL PROTEIN 7.7 G/DL (6.4-8.2); eCRCL 34 ML/MIN; eGFR 31 ML/MIN
[2024-04-02 20:02] LABS: GLUCOSE 624 MG/DL (70-104); POTASSIUM 2.8 MMOL/L (3.5-5.1)
[2024-04-02] MEDS: normal saline 1000ml 1,000 ML IV ONE ×2 (20:30→22:18)
[2024-04-02] MEDS: insulin regular, human 10 units/0.1 ml syringe SQ ONE (20:32)
[2024-04-02 20:44] LABS: ANISOCYTOSIS 1+; PLATELET ESTIMATE DECREASED
[2024-04-02 20:45] LABS: ELLIPTOCYTES FEW; LARGE PLATELETS FEW
[2024-04-02] MEDS: potassium bicarbonate/cit acid 25mEq tablet.effervescent PO STA (20:58)
[2024-04-02 21:41] LABS: ANION GAP 12 (8-16); BLOOD UREA NITROGEN 17 MG/DL (7-18); BUN/CREATININE RATIO 8.3 (10.0-20.0); CALCIUM 8.3 MG/DL (8.5-10.1); CHLORIDE 99 MMOL/L (99-107); CREATININE 2.04 MG/DL (0.60-1.10); SODIUM 136 MMOL/L (135-145); TOTAL CARBON DIOXIDE 25.5 MMOL/L (24-32); eCRCL 36 ML/MIN; eGFR 33 ML/MIN
[2024-04-02 21:56] LABS: GLUCOSE 463 MG/DL (70-104); POTASSIUM 2.4 MMOL/L (3.5-5.1)
[2024-04-02] MEDS: dicyclomine 10 MG capsule PO ONE (22:26)
[2024-04-02 22:31] VITALS: BP 120/75; PULSE 71; RESP 18; O2SAT 96
== END 2024-04-02 22:30 | disposition home or self-care (01) ==
LOC: ER 17:34
DX: E11.65 Type 2 diabetes mellitus with hyperglycemia (principal); E87.6 Hypokalemia; I25.10 Atherosclerotic heart disease of native coronary artery without angina pectoris; K21.9 Gastro-esophageal reflux disease without esophagitis; E11.22 Type 2 diabetes mellitus with diabetic chronic kidney disease; I12.9 Hypertensive chronic kidney disease with stage 1 through stage 4 chronic kidney disease, or unspecified chronic kidney disease; N18.9 Chronic kidney disease, unspecified; Z88.8 Allergy status to other drugs, medicaments and biological substances; Z79.899 Other long term (current) drug therapy; Z79.84 Long term (current) use of oral hypoglycemic drugs
CPT/HCPCS: 36415; 80048; 80053; 82009; 82948; 85008; 85025; 96372; 99285; J1815; J7030; 96360

== ENCOUNTER 2024-04-15 12:27 | Outpatient (CLI) | payer MEDICAID | END 2024-04-15 23:59 | disposition home or self-care (01) | LOC: 64 CT 12:27 | PROVIDERS: ATTEND Family Medicine | DX: I25.10 Atherosclerotic heart disease of native coronary artery without angina pectoris (principal); R91.1 Solitary pulmonary nodule; K74.60 Unspecified cirrhosis of liver | CPT/HCPCS: 71250 ==

== ENCOUNTER 2024-06-20 15:06 | Emergency (ER) | payer MEDICAID ==
[~2024-06-20] VITALS: Ht 175.3 cm; Wt 74.0 kg
[2024-06-20 15:42] LABS: ALANINE AMINOTRANSFERASE 19 U/L (12-78); ALBUMIN 3.2 G/DL (3.4-5.0); ALBUMIN/GLOBULIN RATIO 0.7 (1.1-1.5); ALKALINE PHOSPHATASE 125 IU/L (46-116); ANION GAP 7 (8-16); ASPARTATE AMINO TRANSFERASE 22 U/L (10-37); BILIRUBIN,TOTAL 0.9 MG/DL (0.1-1.0); BLOOD UREA NITROGEN 34 MG/DL (7-18); BUN/CREATININE RATIO 12.7 (10.0-20.0); CALCIUM 8.6 MG/DL (8.5-10.1); CHLORIDE 108 MMOL/L (99-107); CREATININE 2.68 MG/DL (0.60-1.10); POTASSIUM 4.7 MMOL/L (3.5-5.1); SODIUM 139 MMOL/L (135-145); TOTAL CARBON DIOXIDE 23.6 MMOL/L (24-32); TOTAL PROTEIN 7.5 G/DL (6.4-8.2); eCRCL 29 ML/MIN; eGFR 24 ML/MIN
[2024-06-20 15:53] LABS: GLUCOSE 86 MG/DL (70-104)
[2024-06-20 17:01] LABS: BASOPHILS % (AUTO) 1.3 % (0-1); EOSINOPHILS # (AUTO) 0.2 X10'3 (0-0.9); EOSINOPHILS % (AUTO) 5.1 % (0-6); HEMATOCRIT 32.3 % (42.0-52.0); HEMOGLOBIN 10.2 g/dl (14.0-17.9); LYMPHOCYTES # (AUTO) 0.6 X10'3 (1.1-4.8); LYMPHOCYTES % (AUTO) 18.2 % (21-51); MEAN CORPUSCULAR HEMOGLOBIN 26.6 PG (27.0-31.0); MEAN CORPUSCULAR HGB CONC 31.6 g/dL (33.0-36.5); MEAN CORPUSCULAR VOLUME 84.1 FL (78-98); MEAN PLATELET VOLUME 8.6 FL (7.4-10.4); MONOCYTES # (AUTO) 0.4 X10'3 (0-0.9); MONOCYTES % (AUTO) 12.4 % (2-12); NEUTROPHILS # (AUTO) 1.9 X10'3 (1.8-7.7); PLATELET COUNT 56 X10'3 (140-440); RED BLOOD COUNT 3.84 X10'6 (4.70-6.10); RED CELL DISTRIBUTION WIDTH 17.1 % (11.5-14.5)
[2024-06-20] MEDS: normal saline 500ml IV soln 500 ML IV SCH (17:09)
[2024-06-20 17:27] LABS: TOTAL CELLS COUNTED 100
[2024-06-20 17:28] LABS: ANISOCYTOSIS 1+; BURR CELLS FEW; ELLIPTOCYTES FEW; PLATELET ESTIMATE DECREASED
[2024-06-20] MEDS: albumin (Human) 5% 250ml 250 ML IV ONE (18:13)
[2024-06-20 19:40] VITALS: BP 129/72; PULSE 56; RESP 20; TEMP 98.4; O2SAT 97
== END 2024-06-20 19:44 | disposition home or self-care (01) ==
LOC: ER 15:07
DX: N17.9 Acute kidney failure, unspecified (principal); K21.9 Gastro-esophageal reflux disease without esophagitis; E11.22 Type 2 diabetes mellitus with diabetic chronic kidney disease; I12.9 Hypertensive chronic kidney disease with stage 1 through stage 4 chronic kidney disease, or unspecified chronic kidney disease; I25.10 Atherosclerotic heart disease of native coronary artery without angina pectoris; N18.9 Chronic kidney disease, unspecified; K74.60 Unspecified cirrhosis of liver; Z88.1 Allergy status to other antibiotic agents; Z88.5 Allergy status to narcotic agent; Z88.8 Allergy status to other drugs, medicaments and biological substances
CPT/HCPCS: 36415; 71045; 80053; 85007; 85025; 93005; 96361; 96365; 99285; J7040; P9045

== ENCOUNTER 2024-06-22 08:12 | Emergency (ER) | payer MEDICAID ==
[~2024-06-22] VITALS: Ht 170.2 cm; Wt 80.4 kg
[2024-06-22 09:27] LABS: EOSINOPHILS # (AUTO) 0.2 X10'3 (0-0.9); HEMOGLOBIN 10.3 g/dl (14.0-17.9); LYMPHOCYTES # (AUTO) 0.6 X10'3 (1.1-4.8); MONOCYTES # (AUTO) 0.4 X10'3 (0-0.9); NEUTROPHILS # (AUTO) 1.8 X10'3 (1.8-7.7)
[2024-06-22 09:29] LABS: BASOPHILS # (AUTO) 0.1 X10'3 (0-0.2); BASOPHILS % (AUTO) 2.1 % (0-1); EOSINOPHILS % (AUTO) 5.4 % (0-6); HEMATOCRIT 32.2 % (42.0-52.0); LYMPHOCYTES % (AUTO) 18.4 % (21-51); MEAN CORPUSCULAR HEMOGLOBIN 26.8 PG (27.0-31.0); MEAN CORPUSCULAR HGB CONC 31.9 g/dL (33.0-36.5); MEAN CORPUSCULAR VOLUME 83.8 FL (78-98); MEAN PLATELET VOLUME 8.6 FL (7.4-10.4); NEUTROPHILS % (AUTO) 60.1 % (42-75); PLATELET COUNT 57 X10'3 (140-440); RED BLOOD COUNT 3.84 X10'6 (4.70-6.10); RED CELL DISTRIBUTION WIDTH 17.1 % (11.5-14.5)
[2024-06-22 09:41] LABS: BILIRUBIN,URINE NEGATIVE (Neg); CLARITY,URINE CLEAR (Clear); COLOR,URINE YELLOW (Yellow); GLUCOSE, URINE NEGATIVE (Neg); KETONES,URINE NEGATIVE (Neg); LEUKOCYTE ESTERASE ,URINE NEGATIVE (Neg); NITRITES, URINE NEGATIVE (Neg); OCCULT BLOOD,URINE NEGATIVE (Neg); PROTEIN,URINE NEGATIVE (Neg)
[2024-06-22 09:46] LABS: ALBUMIN 3.4 G/DL (3.4-5.0); ANION GAP 7 (8-16); BLOOD UREA NITROGEN 24 MG/DL (7-18); BUN/CREATININE RATIO 11.8 (10.0-20.0); CALCIUM 9.1 MG/DL (8.5-10.1); CHLORIDE 109 MMOL/L (99-107); CREATININE 2.04 MG/DL (0.60-1.10); POTASSIUM 4.3 MMOL/L (3.5-5.1); SODIUM 137 MMOL/L (135-145); TOTAL CARBON DIOXIDE 21.4 MMOL/L (24-32); eCRCL 36 ML/MIN; eGFR 33 ML/MIN
[2024-06-22 09:48] LABS: GLUCOSE 116 MG/DL (70-104)
[2024-06-22 10:00] LABS: UA COLLECTION TYPE VOIDED
[2024-06-22] MEDS ORDERED: CYCL-394 PO (11:04)
[2024-06-22 11:17] VITALS: BP 126/82; PULSE 63; RESP 13; TEMP 98.6; O2SAT 98
[2024-06-22 14:54] LABS: ANISOCYTOSIS 1+; BURR CELLS 2+; ELLIPTOCYTES FEW; PLATELET ESTIMATE DECREASED; SCHISTOCYTES FEW
== END 2024-06-22 11:18 | disposition home or self-care (01) ==
LOC: ER 08:13
DX: S39.012A Strain of muscle, fascia and tendon of lower back, initial encounter (principal); I25.10 Atherosclerotic heart disease of native coronary artery without angina pectoris; I12.9 Hypertensive chronic kidney disease with stage 1 through stage 4 chronic kidney disease, or unspecified chronic kidney disease; E11.22 Type 2 diabetes mellitus with diabetic chronic kidney disease; N18.9 Chronic kidney disease, unspecified; K21.9 Gastro-esophageal reflux disease without esophagitis; F17.210 Nicotine dependence, cigarettes, uncomplicated; Z88.8 Allergy status to other drugs, medicaments and biological substances; Z79.899 Other long term (current) drug therapy; Z79.84 Long term (current) use of oral hypoglycemic drugs; X58.XXXA Exposure to other specified factors, initial encounter; Y93.89 Activity, other specified; Y92.89 Other specified places as the place of occurrence of the external cause; Y99.8 Other external cause status
CPT/HCPCS: 36415; 80048; 81003; 85008; 85025; 99285